=== PATIENT | female | born 1955 | race Caucasian/White ===

== ENCOUNTER 2018-04-26 15:52 | Emergency (ER) | payer MEDICAID ==
[~2018-04-26] VITALS: Ht 157.5 cm; Wt 79.4 kg
[2018-04-26] MEDS ORDERED: LISI5 PO (16:39)
[2018-04-26] MEDS ORDERED: ATOR40TA PO (16:39)
[2018-04-26] MEDS ORDERED: METF500C PO (16:40)
[2018-04-26] MEDS ORDERED: CHOL10002 PO (16:41)
[2018-04-26] MEDS ORDERED: INSDET100 SC (16:41)
[2018-04-26] MEDS ORDERED: Novolog100 UNIT/1 SC (16:41)
[2018-04-26] MEDS ORDERED: Metformin HCl1000 MG PO (17:32)
== END 2018-04-26 17:54 | disposition home or self-care (01) ==
LOC: ER 15:52
DX: J32.9 Chronic sinusitis, unspecified (principal); E11.9 Type 2 diabetes mellitus without complications; I10 Essential (primary) hypertension; E78.5 Hyperlipidemia, unspecified; Z88.0 Allergy status to penicillin; Z88.8 Allergy status to other drugs, medicaments and biological substances; Z79.899 Other long term (current) drug therapy; Z79.4 Long term (current) use of insulin; Z87.891 Personal history of nicotine dependence
CPT/HCPCS: 99282